=== PATIENT | female | born 1985 | race Two or more races ===

== ENCOUNTER 2018-03-13 11:57 | Emergency (ER) | payer MEDICAID ==
[~2018-03-13] VITALS: Ht 157.5 cm; Wt 60.3 kg
--- NOTE | 2018-03-13 12:22 | NUR ---
PATIENT WAS SEEN BY MD FOR COUGH. DC, RX AND FOLLOW UP INSTRUCTIONS GIVEN AND EXPLAINED TO PATIENT WHO STATES SHE UNDERSTANDS ALL INSTRUCTIONS.. INSTRUCTIONS GIVEN IN IRISH BY OTHER RN AND IN PRINT.
== END 2018-03-13 12:25 | disposition home or self-care (01) ==
LOC: ER 11:58
DX: J40 Bronchitis, not specified as acute or chronic (principal); Z88.8 Allergy status to other drugs, medicaments and biological substances
CPT/HCPCS: A4663

== ENCOUNTER 2019-12-05 18:17 | Emergency (ER) | payer MEDICAID ==
[~2019-12-05] VITALS: Ht 157.5 cm; Wt 61.2 kg
[2019-12-05] MEDS ORDERED: BENZONATATE 100 MG CAPSULE ONE (18:57)
[2019-12-05] MEDS ORDERED: ALBUTEROL SULFATE 2.5 MG/3 ML NEBU NEB ONE (19:00)
[2019-12-05] MEDS ORDERED: ALBUTEROL SULFATE 2.5 MG/3 ML NEBU ONE (19:00)
[2019-12-05] MEDS ORDERED: BENZONATATE 100 MG CAPSULE PO ONE (19:00)
--- NOTE | 2019-12-05 19:01 | NUR ---
Respiratory at bedside.
--- NOTE | 2019-12-05 19:30 | NUR ---
Xray at bedside.
--- NOTE | 2019-12-05 20:01 | NUR ---
Patient discharged to home in stable conditon. Written and verbal after care instructions given. Patient verbalizes understanding of instructions. Pt ambulated out of ER with steady gait, no acute signs of distress, VSS, all belongings taken.
[2019-12-05 20:02] VITALS: BP 115/80
== END 2019-12-05 20:03 | disposition home or self-care (01) ==
LOC: MERGE 18:17 → ER 18:17
DX: J20.9 Acute bronchitis, unspecified (principal); Z88.8 Allergy status to other drugs, medicaments and biological substances
CPT/HCPCS: 71045; 93005; A4663